=== PATIENT | female | born 1935 | race Hispanic/Latino ===

== ENCOUNTER 2020-06-13 13:25 | Inpatient (IN) | payer OTHER ==
[~2020-06-13] VITALS: Ht 121.9 cm; Wt 62.6 kg
[~2020-06-13 13:25] MED LIST: AEC81 PO; ALEN70TA80 PO; ALPR0.255 PO; ATOR10 PO; CYCL5TAB PO; GABA-529 PO; LEVO125T11 PO; MECL-160 PO; OMEP20CA12 PO; PROM25TA7 PO; ZOLP10TA6 PO
[2020-06-13] MEDS ORDERED: ASPIRIN 325 MG TABLET ONE (13:36)
[2020-06-13 13:42] LABS: BASOPHILS % (AUTO) 0.4 % (0.0-5.0); EOSINOPHILS % (AUTO) 0.4 % (0.0-8.0); HEMATOCRIT 32.9 % (36-48); LYMPHOCYTES % (AUTO) 20.2 % (21.0-51.0); MEAN CORPUSCULAR HEMOGLOBIN 30.5 pg (27.0-33.0); MEAN CORPUSCULAR HGB CONC 32.5 g/dL (32.0-36.0); MEAN CORPUSCULAR VOLUME 93.7 fL (79-99); NEUTROPHILS % (AUTO) 72.5 % (40.0-77.0); PLATELET COUNT (AUTO) 143 K/uL (130-400); RED BLOOD CELL COUNT(AUTO) 3.51 MIL/uL (4.00-5.50); RED CELL DISTRIBUTION WIDTH 12.2 % (11.0-15.5); WHITE BLOOD COUNT (AUTO) 5.5 K/uL (4.8-10.8)
[2020-06-13 13:54] LABS: INR 1.12 (0.85-1.15); PROTHROMBIN TIME 12.1 SEC (9.6-11.6)
[2020-06-13 13:55] LABS: CREATININE 1.2 mg/dL (0.5-1.5); POTASSIUM 5.2 mmol/L (3.5-5.1)
[2020-06-13 13:56] LABS: PARTIAL THROMBOPLASTIN TIME 38.9 SEC (26.3-35.5)
[2020-06-13 14:05] LABS: ALBUMIN 3.7 g/dL (3.5-5.0); BILIRUBIN,TOTAL 0.5 mg/dL (0.2-1.0); TOTAL PROTEIN, SERUM 7.5 g/dL (6.0-8.3)
[2020-06-13 14:06] LABS: B-TYPE NATRIURETIC PEPTIDE 122 pg/mL (0-100)
[2020-06-13] MEDS ORDERED: MORPHINE 2 MG SYG ONE (14:09)
[2020-06-13] MEDS ORDERED: ONDANSETRON 4MG INJ ONE ×2 (14:09→16:33)
[2020-06-13 14:36] LABS: DIGOXIN 5.42 ng/mL (0.50-2.00)
[2020-06-13] MEDS ORDERED: DOPAMINE 800MG/D5 250ML 250 ML IV ONE (14:41)
[2020-06-13] MEDS ORDERED: DIGOXIN IMMUNE FAB 40 MG VIAL IVP SCH ×2 (14:45→18:45)
[2020-06-13] MEDS ORDERED: 0.9%NACL 50ML 50 ML IV ONE ×3 (14:54→19:57)
[2020-06-13] MEDS ORDERED: ONDANSETRON 4MG INJ IVP PRN (15:15)
[2020-06-13] MEDS ORDERED: DIGOXIN IMMUNE FAB 40 MG VIAL IV PRN (15:15)
[2020-06-13] MEDS ORDERED: MORPHINE 2 MG SYG IVP PRN (15:15)
[2020-06-13] MEDS ORDERED: DOPAMINE 800MG/D5 250ML 250 ML IV PRN (15:15)
[2020-06-13] MEDS ORDERED: ACETAMINOPHEN 325 MG TAB PO PRN (15:15)
[2020-06-13] MEDS: FUROSEMIDE 20 MG TABLET PO SCH (17:00)
[2020-06-13] MEDS ORDERED: DOBUTAMINE 250MG/D5 250ML 250 ML IV ONE (18:21)
[2020-06-13 18:52] LABS: POTASSIUM 5.2 mmol/L (3.5-5.1)
[2020-06-13] MEDS ORDERED: 0.9%NACL 100ML 100 ML IV ONE (19:21)
[2020-06-13] MEDS ORDERED: ALBUTEROL 0.083% 2.5 MG/3 ML INH IH ONE (19:35)
[2020-06-13] MEDS ORDERED: DEXTROSE 50%-WATER 50 ML DISP.SYRIN IV ONE (19:49)
[2020-06-13] MEDS ORDERED: INSULIN HUMULIN R 100 UNIT/ML 3ML ONE (19:50)
[2020-06-13] MEDS: SENNOSIDES 8.6 MG TABLET PO SCH (21:00)
[2020-06-13] MEDS: ATORVASTATIN 20 MG TABLET PO SCH (21:00)
[2020-06-13 21:12] LABS: CREATININE 1.1 mg/dL (0.5-1.5); POTASSIUM 3.8 mmol/L (3.5-5.1)
[2020-06-13 23:10] LABS: APPEARANCE,URINE Clear (CLEAR); BILIRUBIN,URINE Negative (NEGATIVE); COLOR,URINE Yellow (YELLOW); GLUCOSE, URINE (UA) TRACE mg/dL (NEGATIVE); KETONES,URINE Negative (NEGATIVE); LEUKOCYTE ESTERASE ,URINE Trace (NEGATIVE); NITRATE,URINE Negative (NEGATIVE); OCCULT BLOOD,URINE Negative (NEGATIVE); PROTEIN,URINE Negative (NEGATIVE); UROBILINOGEN,URINE 0.2 mg/dL (0.2-1.0)
[2020-06-13 23:31] LABS: BACTERIA,URINE None Seen /HPF (None Seen); RBC,URINE 0-1 /HPF (0-1); SQUAMOUS EPITHELIAL CELL,UR Rare /HPF (0-2); WBC,URINE 0-1 /HPF (0-1)
[2020-06-14] VITALS (17 sets, daily range): BP systolic 103–129; BP diastolic 33–85
[2020-06-14] MEDS ORDERED: MORPHINE 2 MG SYG ONE (01:30)
[2020-06-14 02:24] LABS: POTASSIUM 4.1 mmol/L (3.5-5.1)
[2020-06-14] MEDS: PANTOPRAZOLE 40 MG TAB DR PO SCH ×2 (07:30→09:19)
[2020-06-14] MEDS ORDERED: DOCUSATE SODIUM 100 MG CAP PO ONE (09:15)
[2020-06-14] MEDS ORDERED: FUROSEMIDE 20 MG TABLET ONE (09:15)
[2020-06-14] MEDS ORDERED: PANTOPRAZOLE 40 MG TAB DR ONE (09:16)
[2020-06-14] MEDS ORDERED: ENOXAPARIN SODIUM 30 MG/0.3 ML SQ ONE (09:16)
[2020-06-14] MEDS ORDERED: GABAPENTIN 300 MG CAPSULE ONE (09:16)
[2020-06-14] MEDS: DOCUSATE SODIUM 100 MG CAP PO SCH (09:19)
[2020-06-14] MEDS: GABAPENTIN 300 MG CAPSULE PO SCH (09:19)
[2020-06-14] MEDS: FUROSEMIDE 20 MG TABLET PO SCH ×2 (09:19→18:36)
[2020-06-14] MEDS: ENOXAPARIN SODIUM 30 MG/0.3 ML SQ SCH (09:20)
[2020-06-14 09:21] LABS: CREATININE 0.9 mg/dL (0.5-1.5); POTASSIUM 4.4 mmol/L (3.5-5.1)
[2020-06-14] MEDS: SENNOSIDES 8.6 MG TABLET PO SCH (20:14)
[2020-06-14] MEDS: ATORVASTATIN 20 MG TABLET PO SCH (20:14)
[2020-06-15] VITALS (9 sets, daily range): BP systolic 99–122; BP diastolic 30–67
[2020-06-15 03:46] LABS: BASOPHILS % (AUTO) 0.2 % (0.0-5.0); HEMATOCRIT 30.4 % (36-48); LYMPHOCYTES % (AUTO) 30.7 % (21.0-51.0); MEAN CORPUSCULAR HGB CONC 32.6 g/dL (32.0-36.0); MEAN CORPUSCULAR VOLUME 92.1 fL (79-99); MONOCYTES % (AUTO) 11.5 % (3.0-13.0); NEUTROPHILS % (AUTO) 56.4 % (40.0-77.0); PLATELET COUNT (AUTO) 134 K/uL (130-400); RED CELL DISTRIBUTION WIDTH 12.3 % (11.0-15.5); WHITE BLOOD COUNT (AUTO) 5.2 K/uL (4.8-10.8)
[2020-06-15 03:56] LABS: % IRON SATURATION 11.1 % (22-44)
[2020-06-15 04:09] LABS: ALANINE AMINOTRANSFERASE 26 U/L (12-78); ALBUMIN 3.3 g/dL (3.5-5.0); AMYLASE 16 U/L (25-115); ASPARTATE AMINOTRANSFERASE 30 U/L (10-37); BILIRUBIN,DIRECT 0.2 mg/dL (0.0-0.3); BILIRUBIN,TOTAL 0.8 mg/dL (0.2-1.0); CARBON DIOXIDE 32 mmol/L (21-32); CHLORIDE 102 mmol/L (101-111); CREATININE 0.9 mg/dL (0.5-1.5); GLOMERULAR FILTR. RATE CALC 64 mL/min (>60); GLUCOSE,RANDOM 93 mg/dL (70-105); PHOSPHORUS 4.2 mg/dL (2.5-4.9); POTASSIUM 3.7 mmol/L (3.5-5.1); SODIUM SERUM 139 mmol/L (136-145); TOTAL PROTEIN, SERUM 6.7 g/dL (6.0-8.3); UREA NITROGEN, BLOOD 9 mg/dL (7-18)
[2020-06-15 04:13] LABS: DIGOXIN 2.96 ng/mL (0.50-2.00); LIPASE < 50 U/L (114-286)
[2020-06-15] MEDS: PANTOPRAZOLE 40 MG TAB DR PO SCH ×2 (06:31→08:33)
[2020-06-15] MEDS: GABAPENTIN 300 MG CAPSULE PO SCH (08:32)
[2020-06-15] MEDS: FUROSEMIDE 20 MG TABLET PO SCH (08:33)
[2020-06-15] MEDS: ENOXAPARIN SODIUM 30 MG/0.3 ML SQ SCH (08:33)
[2020-06-15] MEDS: DOCUSATE SODIUM 100 MG CAP PO SCH (08:33)
[2020-06-15] MEDS ORDERED: PANT40GR PO (11:12)
[2020-06-15] MEDS ORDERED: METO50TA18 PO (11:12)
[2020-06-15] MEDS ORDERED: SENN8.8S18 PO (11:12)
[2020-06-15] MEDS ORDERED: ATOR10 PO (11:12)
[2020-06-15] MEDS ORDERED: DABI150C PO (11:12)
[2020-06-15] MEDS ORDERED: GABA300S PO (11:12)
[2020-06-15] MEDS ORDERED: AMIO200T68 PO (11:12)
[2020-06-15] MEDS ORDERED: FURO20TA4 PO (11:12)
[2020-06-15] MEDS ORDERED: DIGO250T73 PO (11:42)
[2020-09-19] MEDS ORDERED: ALPR0.255 PO (12:33)
[2020-09-19] MEDS ORDERED: METO50TA18 PO (12:33)
[2020-09-19] MEDS ORDERED: FAMO20TA8 PO (12:33)
[2020-09-19] MEDS ORDERED: ONDA-104 PO (12:33)
[2020-09-19] MEDS ORDERED: DABI150C PO (12:33)
== END 2020-06-15 13:47 | disposition home or self-care (01) | DRG 308 ==
LOC: EDH 13:25 → EDHIP 15:09 → 2DH 06-14 14:55
PROVIDERS: ADMIT Family Medicine; ATTEND Family Medicine
DX: R00.1 Bradycardia, unspecified (principal); G92 Toxic encephalopathy; N17.9 Acute kidney failure, unspecified; E87.1 Hypo-osmolality and hyponatremia; I95.9 Hypotension, unspecified; E87.5 Hyperkalemia; T46.0X5A Adverse effect of cardiac-stimulant glycosides and drugs of similar action, initial encounter; I48.91 Unspecified atrial fibrillation; I50.9 Heart failure, unspecified; M19.90 Unspecified osteoarthritis, unspecified site; I45.10 Unspecified right bundle-branch block; E03.9 Hypothyroidism, unspecified; I25.10 Atherosclerotic heart disease of native coronary artery without angina pectoris; I11.0 Hypertensive heart disease with heart failure; G89.29 Other chronic pain; Z88.6 Allergy status to analgesic agent; Y92.89 Other specified places as the place of occurrence of the external cause; Z95.1 Presence of aortocoronary bypass graft; Z79.01 Long term (current) use of anticoagulants; Z95.3 Presence of xenogenic heart valve; Z79.899 Other long term (current) drug therapy; Z83.3 Family history of diabetes mellitus; Z82.0 Family history of epilepsy and other diseases of the nervous system; Z82.5 Family history of asthma and other chronic lower respiratory diseases; Z82.3 Family history of stroke; Z82.49 Family history of ischemic heart disease and other diseases of the circulatory system; R07.9 Chest pain, unspecified
CPT/HCPCS: 36415; 70450; 71045; 80048; 80053; 80076; 80162; 81001; 82150; 82550; 82948; 83540; 83550; 83690; 83880; 84100; 84484; 85025; 85610; 85730; 93005; 94644; 99291; G0378; J1162; J1250; J1265; J1650; J1815; J2405; J7070

== ENCOUNTER 2022-08-24 13:37 | Inpatient (IN) | payer OTHER ==
[2022-08-24] VITALS (12 sets, daily range): BP systolic 50–190; BP diastolic 18–118
[~2022-08-24] VITALS: Ht 149.9 cm; Wt 61.3 kg
[~2022-08-24 13:37] MED LIST changes: -AEC81 PO; -ALEN70TA80 PO; -ATOR10 PO; -CYCL5TAB PO; +DABI150C PO; +FAMO20TA8 PO; -GABA-529 PO; +GABA300S3 PO; -LEVO125T11 PO; -MECL-160 PO; +METO50TA18 PO; -OMEP20CA12 PO; +ONDA-104 PO; +PANT40GR PO; -PROM25TA7 PO; -ZOLP10TA6 PO
[2022-08-24] MEDS ORDERED: [UNRECOGNIZED DRUG - OTHER] IV ONE (13:53)
[2022-08-24] MEDS ORDERED: DOPAMINE IV ONE (13:53)
[2022-08-24 14:03] LABS: BASOPHILS % (AUTO) 0.7 % (0.0-5.0); EOSINOPHILS % (AUTO) 0.5 % (0.0-8.0); HEMATOCRIT 34.7 % (36-48); LYMPHOCYTES % (AUTO) 20.4 % (21.0-51.0); MEAN CORPUSCULAR HEMOGLOBIN 28.5 pg (27.0-33.0); MEAN CORPUSCULAR HGB CONC 30.8 g/dL (32.0-36.0); MEAN CORPUSCULAR VOLUME 92.3 fL (79-99); MONOCYTES % (AUTO) 6.7 % (3.0-13.0); NEUTROPHILS % (AUTO) 71.4 % (40.0-77.0); PLATELET COUNT (AUTO) 176 K/uL (130-400); RED BLOOD CELL COUNT(AUTO) 3.76 MIL/uL (4.00-5.50); RED CELL DISTRIBUTION WIDTH 15.3 % (11.0-15.5); WHITE BLOOD COUNT (AUTO) 5.8 K/uL (4.8-10.8)
[2022-08-24 14:17] LABS: CREATININE 1.1 mg/dL (0.5-1.5); POTASSIUM 4.6 mmol/L (3.5-5.1)
[2022-08-24 14:18] LABS: ABG BASE EXCESS -4.3 mmol/L (-2.0-3.0); ABG HCO3 20.7 mmol/L (21.0-28.0); ABG OXYGEN SATURATION 90.1 % (95.0-99.0); ABG PCO2 38 mmHg (32-45)
[2022-08-24 14:30] LABS: ALBUMIN 2.9 g/dL (3.5-5.0); THYROID STIMULATING HORMONE 1.34 uIU/mL (0.36-3.74); TOTAL PROTEIN, SERUM 7.5 g/dL (6.0-8.3)
[2022-08-24] MEDS ORDERED: ONDANSETRON 4MG INJ IVP PRN (17:00)
[2022-08-24] MEDS ORDERED: ACETAMINOPHEN 325 MG TAB PO PRN (17:00)
[2022-08-24] MEDS ORDERED: NITR0.4T50 SL (17:40)
[2022-08-24] MEDS ORDERED: AMIO200T68 PO (17:40)
[2022-08-24] MEDS ORDERED: LEVO125C4 PO (17:40)
[2022-08-24] MEDS ORDERED: APIX2.5T PO (17:40)
[2022-08-24] MEDS ORDERED: LORA10TA7 PO (17:40)
[2022-08-24] MEDS ORDERED: OMEP20TA20 PO (17:40)
[2022-08-24] MEDS ORDERED: DICY10CA13 PO (17:40)
[2022-08-24] MEDS ORDERED: GABA300C PO (17:40)
[2022-08-24] MEDS ORDERED: BIOT10004 PO (17:40)
[2022-08-24] MEDS ORDERED: ATOR20TA65 PO (17:40)
[2022-08-24] MEDS ORDERED: ALPR0.5T8 PO (17:40)
[2022-08-24] MEDS ORDERED: FURO40TA5 PO (17:40)
[2022-08-24] MEDS: FAMOTIDINE 20MG TAB PO SCH (17:58)
[2022-08-24] MEDS: APIXABAN 2.5 MG TABLET PO SCH (20:24)
[2022-08-25] VITALS (19 sets, daily range): BP systolic 104–201; BP diastolic 37–82
[2022-08-25] MEDS: HYDRALAZINE 20MG/ML VIAL IV PRN (03:27)
[2022-08-25 04:02] LABS: BASOPHILS % (AUTO) 0.7 % (0.0-5.0); EOSINOPHILS % (AUTO) 0.1 % (0.0-8.0); HEMATOCRIT 32.1 % (36-48); LYMPHOCYTES % (AUTO) 26.3 % (21.0-51.0); MEAN CORPUSCULAR HEMOGLOBIN 27.9 pg (27.0-33.0); MEAN CORPUSCULAR HGB CONC 30.5 g/dL (32.0-36.0); MEAN CORPUSCULAR VOLUME 91.5 fL (79-99); MONOCYTES % (AUTO) 7.9 % (3.0-13.0); NEUTROPHILS % (AUTO) 64.7 % (40.0-77.0); PLATELET COUNT (AUTO) 148 K/uL (130-400); RED BLOOD CELL COUNT(AUTO) 3.51 MIL/uL (4.00-5.50); RED CELL DISTRIBUTION WIDTH 15.4 % (11.0-15.5); WHITE BLOOD COUNT (AUTO) 6.7 K/uL (4.8-10.8)
[2022-08-25 04:18] LABS: ALBUMIN 3.2 g/dL (3.5-5.0); POTASSIUM 4.1 mmol/L (3.5-5.1); TOTAL PROTEIN, SERUM 7.7 g/dL (6.0-8.3)
[2022-08-25] MEDS: LEVOTHYROXINE 125 MCG TABLET PO SCH (05:48)
[2022-08-25] MEDS: CALCIUM CARB 500MG PO SCH (08:33)
[2022-08-25] MEDS: APIXABAN 2.5 MG TABLET PO SCH ×2 (08:33→20:25)
[2022-08-25] MEDS: FAMOTIDINE 20MG TAB PO SCH (08:33)
[2022-08-25] MEDS ORDERED: FAMOTIDINE 20MG TAB PO SCH (09:00)
[2022-08-25] MEDS ORDERED: KCL 20 MEQ ERTAB PO ONE (19:30)
[2022-08-25] MEDS ORDERED: FUROSEMIDE 40MG VIAL IV ONE (19:30)
[2022-08-26] MEDS: LEVOTHYROXINE 125 MCG TABLET PO SCH (06:28)
[2022-08-26 06:53] VITALS: BP 124/59
[2022-08-26 07:42] VITALS: BP 136/61
[2022-08-26 07:55] LABS: BASOPHILS % (AUTO) 0.5 % (0.0-5.0); HEMATOCRIT 34.2 % (36-48); LYMPHOCYTES % (AUTO) 9.7 % (21.0-51.0); MEAN CORPUSCULAR HEMOGLOBIN 27.8 pg (27.0-33.0); MEAN CORPUSCULAR HGB CONC 30.4 g/dL (32.0-36.0); MEAN CORPUSCULAR VOLUME 91.4 fL (79-99); MONOCYTES % (AUTO) 7.7 % (3.0-13.0); NEUTROPHILS % (AUTO) 81.6 % (40.0-77.0); PLATELET COUNT (AUTO) 162 K/uL (130-400); RED BLOOD CELL COUNT(AUTO) 3.74 MIL/uL (4.00-5.50); RED CELL DISTRIBUTION WIDTH 15.8 % (11.0-15.5); WHITE BLOOD COUNT (AUTO) 6.1 K/uL (4.8-10.8)
[2022-08-26 08:09] LABS: POTASSIUM 4.1 mmol/L (3.5-5.1)
[2022-08-26 08:13] LABS: ALBUMIN 3.4 g/dL (3.5-5.0); MAGNESIUM 1.9 mg/dL (1.80-2.40); TOTAL PROTEIN, SERUM 8.2 g/dL (6.0-8.3)
[2022-08-26] MEDS: FAMOTIDINE 20MG TAB PO SCH (08:30)
[2022-08-26] MEDS: CALCIUM CARB 500MG PO SCH (08:31)
[2022-08-26] MEDS: APIXABAN 2.5 MG TABLET PO SCH ×2 (08:31→19:59)
[2022-08-26 11:41] VITALS: BP 144/60
[2022-08-26] MEDS: HYDRALAZINE 20MG/ML VIAL IV PRN (15:36)
[2022-08-26 15:48] VITALS: BP 167/64
[2022-08-26 16:00] VITALS: BP 144/47
[2022-08-26 19:37] VITALS: BP 114/46
[2022-08-26] MEDS: SACUBITRIL/VALSARTAN 1 EACH TABLET PO SCH (19:58)
[2022-08-26] MEDS: GABAPENTIN 300 MG CAPSULE PO SCH (21:00)
[2022-08-27 00:03] VITALS: BP 115/44
[2022-08-27 03:50] LABS: BASOPHILS % (AUTO) 0.6 % (0.0-5.0); EOSINOPHILS % (AUTO) 1.3 % (0.0-8.0); HEMATOCRIT 33.4 % (36-48); LYMPHOCYTES % (AUTO) 29.2 % (21.0-51.0); MEAN CORPUSCULAR HEMOGLOBIN 27.4 pg (27.0-33.0); MEAN CORPUSCULAR HGB CONC 30.2 g/dL (32.0-36.0); MEAN CORPUSCULAR VOLUME 90.8 fL (79-99); NEUTROPHILS % (AUTO) 57.3 % (40.0-77.0); PLATELET COUNT (AUTO) 173 K/uL (130-400); RED BLOOD CELL COUNT(AUTO) 3.68 MIL/uL (4.00-5.50); RED CELL DISTRIBUTION WIDTH 15.8 % (11.0-15.5); WHITE BLOOD COUNT (AUTO) 5.3 K/uL (4.8-10.8)
[2022-08-27 03:51] VITALS: BP 98/54
[2022-08-27 04:00] LABS: CREATININE 1.2 mg/dL (0.5-1.5); POTASSIUM 3.8 mmol/L (3.5-5.1); TOTAL PROTEIN, SERUM 7.5 g/dL (6.0-8.3)
[2022-08-27] MEDS: LEVOTHYROXINE 125 MCG TABLET PO SCH (05:59)
[2022-08-27] MEDS ORDERED: KCL 20 MEQ ERTAB PO PRN (07:30)
[2022-08-27] MEDS ORDERED: POTASSIUM CHLORIDE 20MEQ/100ML 100 ML IV PRN (07:30)
[2022-08-27 08:23] VITALS: BP 121/53
[2022-08-27] MEDS: POTASSIUM CHLORIDE 10% ELIXIR 20 MEQ/15 ML UDCUP PO PRN ×2 (08:26→13:10)
[2022-08-27] MEDS: FAMOTIDINE 20MG TAB PO SCH (08:27)
[2022-08-27] MEDS: APIXABAN 2.5 MG TABLET PO SCH ×2 (08:27→20:01)
[2022-08-27] MEDS: SPIRONOLACTONE 25 MG TAB PO SCH (08:27)
[2022-08-27] MEDS: EMPAGLIFLOZIN 10MG TABLET PO SCH (08:27)
[2022-08-27] MEDS: FUROSEMIDE 20 MG TABLET PO SCH (08:27)
[2022-08-27] MEDS: SACUBITRIL/VALSARTAN 1 EACH TABLET PO SCH ×2 (08:27→20:00)
[2022-08-27] MEDS: CALCIUM CARB 500MG PO SCH (08:28)
[2022-08-27 12:23] VITALS: BP 103/38
[2022-08-27 16:46] VITALS: BP 120/51
[2022-08-27 19:03] VITALS: BP 128/50
[2022-08-27] MEDS: GABAPENTIN 300 MG CAPSULE PO SCH (20:01)
[2022-08-28 01:02] VITALS: BP 138/61
[2022-08-28 03:03] VITALS: BP 132/50
[2022-08-28 04:00] LABS: CREATININE 0.8 mg/dL (0.5-1.5); POTASSIUM 4.3 mmol/L (3.5-5.1)
[2022-08-28] MEDS: LEVOTHYROXINE 125 MCG TABLET PO SCH (05:36)
[2022-08-28 07:54] VITALS: BP_SYST 105; BP_SYST 142; BP_DIAS 81; BP_DIAS 98
[2022-08-28] MEDS: SACUBITRIL/VALSARTAN 1 EACH TABLET PO SCH (08:15)
[2022-08-28] MEDS: CALCIUM CARB 500MG PO SCH (08:16)
[2022-08-28] MEDS: APIXABAN 2.5 MG TABLET PO SCH (08:16)
[2022-08-28] MEDS: EMPAGLIFLOZIN 10MG TABLET PO SCH (08:17)
[2022-08-28] MEDS: SPIRONOLACTONE 25 MG TAB PO SCH (08:17)
[2022-08-28] MEDS: FAMOTIDINE 20MG TAB PO SCH (08:17)
[2022-08-28] MEDS: FUROSEMIDE 20 MG TABLET PO SCH (08:17)
[2022-08-28 12:05] VITALS: BP 90/55
[2022-08-28 17:01] VITALS: BP 155/57
== END 2022-08-28 19:40 | DRG 291 ==
LOC: EDH 13:37 → EDHIP 16:29 → 2CH 18:37 → 2DH 08-26 15:29
PROVIDERS: ADMIT Hospitalist; ATTEND Hospitalist
DX: I11.0 Hypertensive heart disease with heart failure (principal); E43 Unspecified severe protein-calorie malnutrition; I50.31 Acute diastolic (congestive) heart failure; D68.69 Other thrombophilia; E11.42 Type 2 diabetes mellitus with diabetic polyneuropathy; R00.1 Bradycardia, unspecified; T44.7X5A Adverse effect of beta-adrenoreceptor antagonists, initial encounter; D64.9 Anemia, unspecified; E03.9 Hypothyroidism, unspecified; E78.00 Pure hypercholesterolemia, unspecified; H54.8 Legal blindness, as defined in USA; I25.10 Atherosclerotic heart disease of native coronary artery without angina pectoris; I48.0 Paroxysmal atrial fibrillation; K21.9 Gastro-esophageal reflux disease without esophagitis; Z79.01 Long term (current) use of anticoagulants; Z79.899 Other long term (current) drug therapy; Z82.0 Family history of epilepsy and other diseases of the nervous system; Z82.3 Family history of stroke; Z82.49 Family history of ischemic heart disease and other diseases of the circulatory system; Z82.5 Family history of asthma and other chronic lower respiratory diseases; Z83.3 Family history of diabetes mellitus; Z95.3 Presence of xenogenic heart valve; Z68.27 Body mass index [BMI] 27.0-27.9, adult
CPT/HCPCS: 36415; 36600; 71045; 80048; 80053; 82435; 82803; 82947; 83605; 83735; 83880; 84132; 84295; 84443; 84484; 85018; 85025; 87040; 93005; 93306; 93356; 97039; G0378; J0360; J1265; J1940